=== PATIENT | female | born 1945 | race Caucasian/White ===

== ENCOUNTER 2017-01-04 16:09 | Emergency (ER) | payer OTHER ==
[2017-01-04 16:23] VITALS: RESP 18
[2017-01-04] MEDS ORDERED: ONDANSETRON 4 MG/2 ML VIAL IVP ONE (16:34)
[2017-01-04] MEDS ORDERED: NS 1,000 ML IV ONE (16:34)
--- NOTE | 2017-01-04 16:38 | EDPHY ---
H & P Stated Complaint: midnight N/V/D last vomited @ 1120 today Time Seen by Provider: 01/04/17 16:20 HPI/ROS: This patient complains of lower abdominal pain that awakened her around midnight , described as achy in nature at times severe - 8/10 peak intensity, currently 3 /10 in intensity & nonradiating with no clear exacerbating or alleviating factors. She reports associated fevers with a high temperature of 102 at home. She has also had some chills. She reports having anorexia associated with this and ongoing nausea after vomiting a few times over night. She tolerated minimal p.o. water today but still feels nauseous. She also reports onset of diarrhea overnight with few episodes of loose watery stools. She reports that the pain preceded the vomiting & diarrhea by 1-2 hours. ROS: Constitutional symptoms: Fever as per HPI otherwise negative HEENT: No recent URI symptoms. No other complaints. Pulmonary: No cough. No shortness of breath. Cardiovascular: No lightheadedness. No chest pain. GI: She reports no upper belly pain. No hematemesis, dark tarry stools or bloody stools. : No urinary symptoms. Integumentary: No skin rash Endocrine: No complaints Neuro: No complaints Complete review of symptoms is otherwise negative. Source: Patient Exam Limitations: No limitations - Personal History Current Tetanus Diphtheria and Acellular Pertussis (TDAP): Yes Tetanus Vaccine Date: 2010 - Medical/Surgical History PMH: Past surgical history: Appendicitis, hysterectomy Hypertension Diverticulosis noted on endoscopy. Hx Asthma: No Hx Chronic Respiratory Disease: No Hx Diabetes: No Hx Cardiac Disease: Yes Hx Renal Disease: No Hx Cirrhosis: No Hx Alcoholism: No Hx HIV/AIDS: No Hx Splenectomy or Spleen Trauma: No Other PMH: medical- diverticulitis, gastritis, HTN, HLD. surgical- appy, hysterectomy, x2 - Family History Significant Family History: No pertinent family hx - Social History Alcohol Use: Occasionally Drug Use: None - Physical Exam Exam: General Appearance: Alert, no distress. Eyes: Pupils equal and round no pallor or injection. ENT, Mouth: Mucous membranes moist. Respiratory: There are no retractions, lungs are clear to auscultation. Cardiovascular: Regular rate and rhythm. Gastrointestinal: Normal to hyperactive bowel sounds. Soft, mild right lower quadrant tenderness with no guarding or rebound. No organomegaly. Back: No CVA tenderness Neurological: GCS 15 with no deficits Skin: Warm and dry, no rashes. Musculoskeletal: Neck is supple nontender. Extremities are symmetrical, full range of motion. Psychiatric: Mood and affect normal DIFFERENTIAL DIAGNOSIS: After history and physical exam differential diagnosis was considered for diverticulitis, viral gastroenteritis, mild dehydration, UTI , bowel obstruction Constitutional: Initial Vital Signs Temperature (C) 37.1 C 01/04/17 16:21 Heart Rate 84 01/04/17 16:21 Respiratory Rate 18 01/04/17 16:21 Blood Pressure 151/69 H 01/04/17 16:21 O2 Sat (%) 95 01/04/17 16:21 O2 Delivery Mode Room Air Allergies/Adverse Reactions: Penicillins Allergy (Verified 08/18/13 09:02) Home Medications: Medication Instructions Recorded Aspirin 81mg (OTC) 08/18/13 Lisinopril 08/18/13 Ondansetron Odt [Zofran Odt] 4 mg PO Q4PRN PRN #6 tab 08/18/13 Simvastatin 08/18/13 Ondansetron Odt [Zofran Odt] 4 - 8 mg PO Q4PRN PRN #4 tab 01/04/17 Medical Decision Making - Diagnostics EKG Interpretation: 12 lead EKG indication colitis-possible ischemic colitis-rule out evidence of NM , abnormal rhythm or other Performed 18 19 Sinus rhythm at 78 Intervals: Normal throughout [place]: Normal throughout ST segments: Slight anterolateral ST depression in leads V3 through V6 Overall assessment sinus rhythm with nonspecific T abnormalities diffuse leads Imaging Results: Imaging Impressions Abdomen CT 01/04/17 17:19 Impression: 1. Mild colitis centered at the splenic flexure. Suspect infectious etiologies. Unlikely diverticulitis as there are no associated diverticula in the inflamed segment. Doubtful for ischemic, due to widely patent arterial and venous system. Crohn disease remains in the differential, although, atypical. Recommend colonoscopy after acute phase has resolved to exclude underlying malignancy. 2. Minimal sigmoid diverticulosis. 3. No abscess, perforation, or bowel obstruction. Findings discussed with Emergency Department physician, Cameron Culver on at 1808 hours. ED Course/Re-evaluation: IV normal saline bolus, Zofran IV with significant improvement and her symptoms. She reports resolution of nausea. She still some crampy lower abdominal pain but declined any analgesics Given the patient's fever, history of diverticulosis and multiple previous surgeries, leukocytosis to the 13.5 with left shift along with pain that preceded the onset of vomiting diarrhea by 2 hours, proceeded with CT imaging to rule out diverticulitis, early bowel obstruction or other. I counseled patient regarding the CT scan results which reveal findings consistent with a colitis. I discussed case with Dr. Wells on-call for Gastroenterology who will be happy to follow up with the patient for further evaluation for any ongoing symptoms last beyond the next 3-[address] Evans-infectious disease specialist on-call who agrees with plan for GI pathogen PCR study. Patient is unable to provide a stool sample while here so we sent her home with a stool collection kit which she use to bring a stool sample to [facility] for PCR lab testing. Discussion: This patient has colitis that clinically is most consistent with infectious colitis-likely viral given lack of risk factors for bacterial or parasitic dysentery. CT imaging not reveal any significant vascular abnormalities the be suggestive of ischemic colitis. Furthermore, the patient does not have any bloody stools, has minimal discomfort 3/10 currently and has no evidence of significant heart disease. While on her EKG she has very subtle ST depression laterally, she does not have any active cardiac symptoms and her troponin is normal. I did discuss the option of admission for this patient for further hydration and workup but she prefers to go home at this time with close follow-up with her primary care physician and Gastroenterology. - Data Points Laboratory Results: Laboratory Results 01/04/17 16:34 01/04/17 16:34 01/04/17 01/04/17 01/04/17 17:50 16:34 16:34 WBC RBC Hgb Hct MCV MCH MCHC RDW Plt Count MPV Neut % (Auto) Lymph % (Auto) [place] % (Auto) Eos % (Auto) Baso % (Auto) Nucleat RBC Rel Count Absolute Neuts (auto) Absolute Lymphs (auto) Absolute Monos (auto) Absolute Eos (auto) Absolute Basos (auto) Absolute Nucleated RBC Immature Gran % Immature Gran # Sodium 138 mEq/L mEq/L (134-144) Potassium 3.7 mEq/L mEq/L (3.5-5.2) Chloride 102 mEq/L mEq/L (97-110) Carbon Dioxide 24 mEq/l mEq/l (22-31) Anion Gap 12 mEq/L mEq/L (8-16) BUN 15 mg/dL mg/dL (7-23) Creatinine 0.7 mg/dL mg/dL (0.6-1.0) Estimated GFR > 60 Glucose 116 mg/dL H mg/dL (70-100) Calcium 9.0 mg/dL mg/dL (8.5-10.4) Troponin I < 0.012 ng/mL ng/mL (0-0.034) Urine Color YELLOW Urine Appearance CLEAR Urine pH 6.0 (5.0-7.5) Ur Specific [place] <= 1.005 (1.002-1.030) Urine Protein NEGATIVE (NEGATIVE) Urine Ketones NEGATIVE (NEGATIVE) Urine Blood TRACE H (NEGATIVE) Urine Nitrate NEGATIVE (NEGATIVE) Urine Bilirubin NEGATIVE (NEGATIVE) Urine Urobilinogen 0.2 EU EU (0.2-1.0) Ur Leukocyte Esterase NEGATIVE (NEGATIVE) Urine RBC 1-3 /hpf /hpf (0-3) Urine WBC NONE SEEN /hpf /hpf (0-3) Ur Epithelial Cells TRACE /lpf /lpf (NONE-1+) Urine Mucus 1+ /lpf /lpf (NONE-1+) Urine Glucose NEGATIVE (NEGATIVE) 01/04/17 16:34 WBC 13.57 10^3/uL H 10^3/uL (3.80-9.50) RBC 4.55 10^6/uL 10^6/uL (4.18-5.33) Hgb 13.4 g/dL g/dL (12.6-16.3) Hct 39.2 % % (38.0-47.0) MCV 86.2 fL fL (81.5-99.8) MCH 29.5 pg pg (27.9-34.1) MCHC 34.2 g/dL g/dL (32.4-36.7) RDW 12.8 % % (11.5-15.2) Plt Count 273 10^3/uL 10^3/uL (150-400) MPV 9.6 fL fL (8.7-11.7) Neut % (Auto) 85.4 % H % (39.3-74.2) Lymph % (Auto) 8.2 % L % (15.0-45.0) [place] % (Auto) 5.4 % % (4.5-13.0) Eos % (Auto) 0.1 % L % (0.6-7.6) Baso % (Auto) 0.3 % % (0.3-1.7) Nucleat RBC Rel Count 0.0 % % (0.0-0.2) Absolute Neuts (auto) 11.59 10^3/uL H 10^3/uL (1.70-6.50) Absolute Lymphs (auto) 1.11 10^3/uL 10^3/uL (1.00-3.00) Absolute Monos (auto) 0.73 10^3/uL 10^3/uL (0.30-0.80) Absolute Eos (auto) 0.02 10^3/uL L 10^3/uL (0.03-0.40) Absolute Basos (auto) 0.04 10^3/uL 10^3/uL (0.02-0.10) Absolute Nucleated RBC 0.00 10^3/uL 10^3/uL (0-0.01) Immature Gran % 0.6 % % (0.0-1.1) Immature Gran # 0.08 10^3/uL 10^3/uL (0.00-0.10) Sodium Potassium Chloride Carbon Dioxide Anion Gap BUN Creatinine Estimated GFR Glucose Calcium Troponin I Urine Color Urine Appearance Urine pH Ur Specific [place] Urine Protein Urine Ketones Urine Blood Urine Nitrate Urine Bilirubin Urine Urobilinogen Ur Leukocyte Esterase Urine RBC Urine WBC Ur Epithelial Cells Urine Mucus Urine Glucose Medications Given: Discontinued Medications Sodium Chloride (Ns) 1,000 mls @ 0 mls/hr IV ONCE ONE PRN Reason: Wide Open Stop: 01/04/17 16:35 Last Admin: 01/04/17 16:43 Dose: 1,000 mls Ondansetron HCl (Zofran) 4 mg IVP EDNOW ONE Stop: 01/04/17 16:35 Last Admin: 01/04/17 16:43 Dose: 4 mg Ondansetron HCl (Zofran Odt 4 Mg Prepack#2) 1 btl TAKEHOME EDNOW ONE Stop: 01/04/17 19:20 Last Admin: 01/04/17 19:33 Dose: 1 btl Departure - Departure Disposition: Home, Routine, Self-Care Clinical Impression: Colitis Condition: Good Instructions: Ondansetron (By mouth), Infectious Colitis (ED) Additional Instructions: Diagnosis: Colitis-presumed to be infectious Plan: Zofran for nausea or vomiting if needed Tylenol for fevers if needed Light diet to feel improved Collect a stool sample and bring it to the [facility] lab for testing. If the lab testing the stools unrevealing, then call Dr. Mcginnis,- guitar maker arrange follow-up appointment for further evaluation Referrals: Kwasi Mazariegos MD [Primary Care Provider] - As per Instructions Kade Mcginnis MD [Medical Doctor] - As per Instructions Prescriptions: Ondansetron Odt [Zofran Odt] 4 - 8 mg PO Q4PRN PRN #4 tab PRN Reason: Vomiting
[2017-01-04 16:44] LABS: % IMMATURE GRANULYOCYTES 0.6 % (0.0-1.1); ABSOLUTE IMMATURE GRANULOCYTES 0.08 10^3/uL (0.00-0.10); ADD DIFF? NO; ADD MORPH? NO; ADD SCAN? NO; ATYPICAL LYMPHOCYTE FLAG 0 (0-99); FRAGMENT RBC FLAG 0 (0-99); HEMATOCRIT 39.2 % (38.0-47.0); HEMOGLOBIN 13.4 g/dL (12.6-16.3); LEFT SHIFT FLG 0 (0-99); LIPEMIA HEMOLYSIS FLAG 90 (0-99); MEAN CELL HEMOGLOBIN 29.5 pg (27.9-34.1); MEAN CELL HEMOGLOBIN CONCENTR. 34.2 g/dL (32.4-36.7); MEAN CELL VOLUME 86.2 fL (81.5-99.8); MEAN PLATELET VOLUME 9.6 fL (8.7-11.7); PLATELET CLUMPS FLAG 0 (0-99); PLATELET COUNT 273 10^3/uL (150-400); RED BLOOD CELL COUNT 4.55 10^6/uL (4.18-5.33); RED CELL DISTRIBUTION WIDTH 12.8 % (11.5-15.2)
[2017-01-04 16:57] LABS: ANION GAP 12 mEq/L (8-16); CARBON DIOXIDE 24 mEq/l (22-31); CHLORIDE 102 mEq/L (97-110); CREATININE 0.7 mg/dL (0.6-1.0); GLOMERULAR FILTRATION RATE > 60; GLUCOSE 116 mg/dL (70-100); POTASSIUM 3.7 mEq/L (3.5-5.2); SODIUM 138 mEq/L (134-144)
[2017-01-04] MEDS ORDERED: IOPAMIDOL (ISOVUE-300) 100 ML BTL ONE (17:27)
[2017-01-04 17:57] LABS: COLOR YELLOW; LEUKOCYTE ESTERASE,URINE NEGATIVE (NEGATIVE); NITRITE,URINE NEGATIVE (NEGATIVE)
[2017-01-04 18:12] LABS: MUCUS 1+ /lpf (NONE-1+); WBC,URINE NONE SEEN /hpf (0-3)
[2017-01-04 18:20] VITALS: BP 150/73; O2SAT 96
--- NOTE | 2017-01-04 18:21 | CPEKG ---
Heart Rate: 78 RR Interval: 769 P-R Interval: 164 QRSD Interval: 76 QT Interval: 368 QTC Interval: 420 P [place]: 44 QRS [place]: 31 T Wave [place]: -43 EKG Severity - ABNORMAL ECG - EKG Impression: SINUS RHYTHM EKG Impression: NONSPECIFIC T ABNORMALITIES, DIFFUSE LEADS Electronically Signed By: Cameron Culver 04-Jan-2017 21:26:22
[2017-01-04 18:58] VITALS: PULSE 74; TEMP 98
[2017-01-04] MEDS ORDERED: ONDANSETRON 4MG PREPACK#2 BTL TAKEHOME ONE (19:19)
== END 2017-01-04 19:50 | disposition home or self-care (01) ==
LOC: CED 16:09
DX: K52.9 Noninfective gastroenteritis and colitis, unspecified (principal); I10 Essential (primary) hypertension; Z79.82 Long term (current) use of aspirin; Z90.710 Acquired absence of both cervix and uterus
CPT/HCPCS: 74177; 93005; 96361; 96374; 99285; J2405; Q9967; 80048-PO; 81003-PO; 81015-PO; 84484-PO; 85025-PO

== ENCOUNTER 2017-09-18 10:55 | Inpatient (IN) | payer OTHER ==
[2017-09-18] MEDS ORDERED: NS 1,000 ML IV ONE (11:33)
[2017-09-18] MEDS ORDERED: ONDANSETRON 4 MG/2 ML VIAL IVP ONE (11:33)
[2017-09-18 11:38] LABS: PLATELET COUNT 302 10^3/uL (150-400)
--- NOTE | 2017-09-18 11:46 | EDPHY ---
H & P Time Seen by Provider: 09/18/17 11:18 HPI/ROS: CHIEF COMPLAINT: Abdominal pain, dry heaves HISTORY OF PRESENT ILLNESS: 71-year-old female with a history of uterine cancer and prior small-bowel obstruction presents with abdominal pain. Onset of upper abdominal pain and abdominal bloating 2 days ago, waxing and waning since then. The pain has been constant, varying from 4-7 on a 1-10 pain scale. Associated with dry heaves this morning and low-grade fever. 2 episodes of loose stools yesterday, no bowel movement or flatulence today. REVIEW OF SYSTEMS: Constitutional: no chills Eyes: No visual changes ENT: No sore throat Respiratory: No cough, no shortness of breath Cardiac: No chest pain Genitourinary: No hematuria, no dysuria Musculoskeletal: No myalgias Skin: No rash Neurological: No headache, no weakness Psychiatric: No depression Past Medical/Surgical History: Diverticulosis Uterine cancer, status post XRT and hysterectomy Small-bowel obstruction Hypertension Appendectomy Social History: Smoking Status: Never smoked Physical Exam: General Appearance: Alert, pleasant Eyes: Pupils equal and round, no conjunctival pallor ENT, Mouth: Mucous membranes moist Neck: Normal inspection Respiratory: Lungs are clear to auscultation Cardiovascular: Regular rate and rhythm Gastrointestinal: Abdomen is soft, diffuse tenderness, decreased bowel sounds Neurological: A&O, nonfocal, normal gait Skin: Warm and dry Extremities: Normal inspection Psychiatric: Mood and affect normal Constitutional: Initial Vital Signs Temperature (C) 36.5 C 09/18/17 11:05 Heart Rate 81 09/18/17 11:05 Respiratory Rate 16 09/18/17 11:05 Blood Pressure 133/76 H 09/18/17 11:05 O2 Sat (%) 93 09/18/17 11:05 O2 Delivery Mode Nasal Cannula O2 (L/minute) 1.5 Allergies/Adverse Reactions: Penicillins Allergy (Verified 09/18/17 11:02) Home Medications: Medication Instructions Recorded Aspirin 81mg (OTC) 08/18/13 Lisinopril 08/18/13 Simvastatin 08/18/13 Citalopram 09/18/17 Omeprazole 09/18/17 Preservision Areds Softgel 09/18/17 VITAMIN D 09/18/17 Medical Decision Making - Diagnostics Imaging Results: Imaging Impressions Abdomen CT 09/18/17 12:11 Impression: 1. Moderate partial SBO with point of transition mid ileum in the mid pelvis with associated thickening of about 10-15 cm of ileum possibly from underlying enteritis and/or adhesions. 2. Distended gallbladder Findings discussed with Estrella Knight M.D. at 13:13 hour, 09/18/2017. ED Course/Re-evaluation: This patient presents with diffuse abdominal pain and dry heaves, concerning for recurrent small bowel obstruction. IV normal saline 1 L, morphine 6 mg IV and Zofran [address] scan of the abdomen/pelvis ordered. Feels much better after IV morphine and Zofran. 1315: CT scan results discussed with the patient, c/w SBO. Continues to feel better. Abd exam remains benign. Given no active vomiting, NGT not placed. The hospitalist service was consulted for admission. Transferred to [facility] in stable condition. Differential Diagnosis: Differential diagnosis includes though it is not limited to appendicitis, cholecystitis, diverticulitis, pyelonephritis, bowel perforation, small bowel obstruction. - Data Points Laboratory Results: Laboratory Results 09/18/17 11:20 09/18/17 11:20 09/18/17 09/18/17 09/18/17 12:06 11:20 11:20 WBC 12.78 10^3/uL H 10^3/uL (3.80-9.50) RBC 5.10 10^6/uL 10^6/uL (4.18-5.33) Hgb 14.7 g/dL g/dL (12.6-16.3) Hct 43.7 % % (38.0-47.0) MCV 85.7 fL fL (81.5-99.8) MCH 28.8 pg pg (27.9-34.1) MCHC 33.6 g/dL g/dL (32.4-36.7) RDW 13.3 % % (11.5-15.2) Plt Count 302 10^3/uL 10^3/uL (150-400) MPV 9.4 fL fL (8.7-11.7) Neut % (Auto) 88.5 % H % (39.3-74.2) Lymph % (Auto) 6.5 % L % (15.0-45.0) [place] % (Auto) 3.8 % L % (4.5-13.0) Eos % (Auto) 0.5 % L % (0.6-7.6) Baso % (Auto) 0.2 % L % (0.3-1.7) Nucleat RBC Rel Count 0.0 % % (0.0-0.2) Absolute Neuts (auto) 11.32 10^3/uL H 10^3/uL (1.70-6.50) Absolute Lymphs (auto) 0.83 10^3/uL L 10^3/uL (1.00-3.00) Absolute Monos (auto) 0.48 10^3/uL 10^3/uL (0.30-0.80) Absolute Eos (auto) 0.06 10^3/uL 10^3/uL (0.03-0.40) Absolute Basos (auto) 0.03 10^3/uL 10^3/uL (0.02-0.10) Absolute Nucleated RBC 0.00 10^3/uL 10^3/uL (0-0.01) Immature Gran % 0.5 % % (0.0-1.1) Immature Gran # 0.06 10^3/uL 10^3/uL (0.00-0.10) Sodium 140 mEq/L mEq/L (135-145) Potassium 3.8 mEq/L mEq/L (3.5-5.2) Chloride 102 mEq/L mEq/L (97-110) Carbon Dioxide 22 mEq/l mEq/l (22-31) Anion Gap 16 mEq/L mEq/L (8-16) BUN 12 mg/dL mg/dL (7-23) Creatinine 0.7 mg/dL mg/dL (0.6-1.0) Estimated GFR > 60 Glucose 159 mg/dL H mg/dL (70-100) Calcium 9.7 mg/dL mg/dL (8.5-10.4) Total Bilirubin 2.1 mg/dL H mg/dL (0.1-1.4) Conjugated Bilirubin 0.2 mg/dL mg/dL (0.0-0.5) Unconjugated Bilirubin 1.9 mg/dL H mg/dL (0.0-1.1) AST 18 IU/L IU/L (14-46) ALT 19 IU/L IU/L (9-52) Alkaline Phosphatase 91 IU/L IU/L (38-126) Total Protein 7.0 g/dL g/dL (6.3-8.2) Albumin 4.0 g/dL g/dL (3.5-5.0) Lipase 69 IU/L IU/L (23-300) Influenza A,B Rapid NEGATIVE FOR FLU (NEGATIVE) Medications Given: Discontinued Medications Sodium Chloride (Ns) 1,000 mls @ 0 mls/hr IV EDNOW ONE; Wide Open PRN Reason: Protocol Stop: 09/18/17 11:34 Last Admin: 09/18/17 11:42 Dose: 1,000 mls Morphine Sulfate (Morphine) 6 mg IVP EDNOW ONE Stop: 09/18/17 11:43 Last Admin: 09/18/17 11:53 Dose: 6 mg Ondansetron HCl (Zofran) 4 mg IVP EDNOW ONE Stop: 09/18/17 11:34 Last Admin: 09/18/17 11:46 Dose: 4 mg Departure - Departure Disposition: [facility] Inpatient Acute Clinical Impression: Small bowel obstruction Condition: Good
[2017-09-18] MEDS ORDERED: IOPAMIDOL (ISOVUE-300) 100 ML BTL ONE (12:16)
[2017-09-18] MEDS ORDERED: ACETAMINOPHEN 325 MG TAB PO PRN (14:21)
[2017-09-18] MEDS ORDERED: ONDANSETRON DISINTEGRATING 4 MG TAB PO PRN (14:21)
[2017-09-18] MEDS ORDERED: ONDANSETRON 4 MG/2 ML VIAL IVP PRN (14:21)
[2017-09-18] MEDS ORDERED: NS 1,000 ML IV SCH (14:30)
--- NOTE | 2017-09-18 17:09 | GHP ---
[f rep st] HISTORY AND PHYSICAL DATE OF ADMISSION: 09/18/2017 CHIEF COMPLAINT: Abdominal pain. HISTORY OF PRESENT ILLNESS: A 71-year-old female with limited past medical history who presents with sudden onset of severe abdominal discomfort that began approximately 24 hours prior to presentation. Patient reports sharp, severe pain extending in her upper abdomen from right to left, associated wi th mild nausea, no vomiting. Patient had previous episodes similar to this many years ago where she was diagnosed with a partial small-bowel obstruction and was treated medically and had resolution. P babs recognized the symptoms and kept herself from taking p.o. for the first 20 hours of her sympto ms, then attempted to take a banana, which she successfully kept down and when the pain did not impro ve with this modest elimination of oral intake, she opted to present for evaluation. In the ED, vaibhav es any active vomiting. Endorses subjective fevers. No chills. Denies shortness of breath, chest p ain. Denies diarrhea. Reports that she passed a small soft consistency stool without blood the morn ing of presentation. Denies dysuria, hematuria, lower extremity edema, or any rashes. PAST MEDICAL HISTORY: 1. Uterine cancer, status post surgical removal, radiation, and radioactive isotope treatment. 2. Hypertension. 3. Hyperlipidemia. 4. Gastritis. 5. History of diverticulitis. SOCIAL HISTORY: Negative for tobacco, alcohol. No illicit drugs or marijuana. FAMILY HISTORY: Negative for uterine cancer. Her mother did have a hysterectomy, secondary to an ab normal Pap smear; however, she could not confirm a true cancer diagnosis. ADVANCED DIRECTIVES: Patient is Full COR, Full Tube. REVIEW OF SYSTEMS: Negative with the exception of that reported in the HPI. PHYSICAL EXAMINATION: VITAL SIGNS: Blood pressure 113/61, heart rate 73, respiratory rate 16, 96% o n 2 L, 37.0. GENERAL: This is a healthy-appearing middle-aged female in no acute distress. HEENT: Notable for moist mucous membranes. Eye exam is negative for any icterus. CARDIAC: Patient is reg ular rate and rhythm. PULMONARY: Clear to auscultation bilaterally. GASTROINTESTINAL: Diminished bowel sounds. Abdomen is soft. Mild tenderness to palpation throughout. No rebound or guarding. M USCULOSKELETAL: Negative for any lower extremity edema. SKIN: Negative for any rashes. NEUROLOGIC : She is alert and oriented x3. PSYCHIATRIC: She is pleasant and cooperative on interview and exam ination. LABORATORY/IMAGING: White count 12.7, hematocrit 43.7, platelets of 302. Creatinine 0.7. CT of the abdomen, which I personally reviewed and interpreted, shows small bowel obstruction. Radio logy describes a transition point in the mid ileum. ASSESSMENT/PLAN: This is a 71-year-old female presenting with abdominal pain. 1. Acute small bowel obstruction. Patient is certainly at risk for mechanical obstruction related t o her previous radiation and surgical interventions. We will begin with medical management and keep the patient n.p.o., intravenous fluid, pain medications, and encourage ambulation. I have reviewed t he case with Dr. Amador from Surgery. He has seen the images and will follow along peripherally with out official consultation at this point. He agrees in not placing a nasogastric tube at this time ba sed on how decompressed her stomach appears on imaging. 2. Acute leukocytosis. Suspect secondary to her acute presentation. We will recheck in the morning . Patient does not have other symptoms concerning for occult infection. 3. Hypertension. We will continue her home medications. She is normotensive at the time of present ation. 4. Depression. Will continue her Celexa at home dosing. 5. Gastritis. Will continue her home proton pump inhibitor twice daily. 6. Prophylaxis with Lovenox. 7. Diet: n.p.o. with IV fluids. DISPOSITION: I expect greater than 2 midnights as the patient is presenting with acute bowel obstruc tion requiring medical management and close monitoring, as well as IV fluids. I have discussed the c ase with Dr. Amador from surgery. He will follow peripherally. /[id number]/MODL
[2017-09-18] MEDS: ATORVASTATIN CALCIUM 10 MG TAB PO SCH (20:51)
[2017-09-18] MEDS: BIMATOPROST 0.01% 2.5 ML OPHT.BTL EACHEYE SCH (20:51)
[2017-09-18] MEDS: ASPIRIN EC 81 MG TAB PO SCH (20:51)
[2017-09-18] MEDS: PANTOPRAZOLE SODIUM 40 MG TAB PO SCH (20:51)
[2017-09-19 05:13] LABS: PLATELET COUNT 202 10^3/uL (150-400)
[2017-09-19] MEDS ORDERED: SODIUM CHLORIDE IV SCH (07:00)
[2017-09-19] MEDS ORDERED: POTASSIUM CHLORIDE IV SCH (07:00)
[2017-09-19] MEDS ORDERED: [UNRECOGNIZED DRUG - OTHER] IV SCH (07:00)
[2017-09-19] MEDS ORDERED: DEXTROSE IV SCH (07:00)
[2017-09-19] MEDS: ENOXAPARIN 40 MG/0.4 ML SYR SC SCH (08:56)
[2017-09-19] MEDS: LISINOPRIL 10 MG TAB PO SCH (08:56)
[2017-09-19] MEDS: CITALOPRAM 20 MG TAB PO SCH (08:56)
[2017-09-19] MEDS: PRESERVISION AREDS2 FORMULA EYE VIT 1 EACH PO SCH (08:56)
[2017-09-19] MEDS: PANTOPRAZOLE SODIUM 40 MG TAB PO SCH ×2 (08:56→21:01)
[2017-09-19] MEDS ORDERED: Herbals/Supplements -Info Only PO SCH (09:00)
--- NOTE | 2017-09-19 09:39 | HOSPPROG ---
Hospitalist Progress Note Assessment/Plan: SBO - Suspect adhesions given multiple abdominal surgeries. Abdominal exam benign with bowel tones and flatus, no BM. Improving without NG tube. -abdominal plain film today personally reviewed and interpreted - mild distention of distal small bowel c/w ileus or persistent sbo -cont NPO, bowel rest -defer NG tube unless she develops vomiting or increased distention Hypertension - stable, cont lisinopril Depression - cont celexa Gastritis hx - cont PPI Full code Dispo - cont inpt Subjective: Pt feels a little better. No vomiting. +flatus, no BM. She is NPO. Less pain today. Objective: Vital Signs Temp Pulse Resp BP Pulse Ox 36.9 C 72 16 117/56 L 98 09/19/17 07:25 09/19/17 07:25 09/19/17 07:25 09/19/17 07:25 09/19/17 07:25 Laboratory Results 09/19/17 04:30 09/19/17 04:30 09/18/17 09/19/17 09/20/17 05:59 05:59 05:59 Intake Total 1300 Balance 1300 - Physical Exam Constitutional: no apparent distress Eyes: PERRL Ears, Nose, Mouth, Throat: moist mucous membranes Cardiovascular: regular rate and rhythym Respiratory: no respiratory distress, clear to auscultation Gastrointestinal: normoactive bowel sounds, soft, non-tender abdomen Skin: warm Musculoskeletal: full muscle strength Neurologic: AAOx3 Psychiatric: interacting appropriately ICD10 Worksheet Patient Problems: Problems Problem Status Onset Small bowel obstruction Acute
--- NOTE | 2017-09-19 09:43 | ASMTCASEMG ---
Living Arrangements What is your living Answers: With Spouse arrangement? Who do you live with? Type Of Residence What kind of residence do Answers: House you live in? Discharge Plan Comments Coordination Status Comments Notes: Pt is a 71 y/o female admitted for a small bowel obstruction. Pt will be consulted for surgery. Pt will most likely not have any d/c needs. No therapies ordered at this time. CM available for changes. Plan: Independent Date Signed: 09/19/2017 09:43 AM Electronically Signed By:SHASHANK Juarez
[2017-09-19] MEDS: POTASSIUM CHLORIDE IV SCH (17:54)
[2017-09-19] MEDS: SODIUM CHLORIDE IV SCH (17:54)
[2017-09-19] MEDS: [UNRECOGNIZED DRUG - OTHER] IV SCH (17:54)
[2017-09-19] MEDS: DEXTROSE IV SCH (17:54)
[2017-09-19] MEDS: BIMATOPROST 0.01% 2.5 ML OPHT.BTL EACHEYE SCH (21:01)
[2017-09-19] MEDS: ASPIRIN EC 81 MG TAB PO SCH (21:01)
[2017-09-19] MEDS: ATORVASTATIN CALCIUM 10 MG TAB PO SCH (21:01)
[2017-09-20] MEDS: DEXTROSE IV SCH (02:25)
[2017-09-20] MEDS: [UNRECOGNIZED DRUG - OTHER] IV SCH (02:25)
[2017-09-20] MEDS: SODIUM CHLORIDE IV SCH (02:25)
[2017-09-20] MEDS: POTASSIUM CHLORIDE IV SCH (02:25)
[2017-09-20] MEDS: PRESERVISION AREDS2 FORMULA EYE VIT 1 EACH PO SCH (08:32)
[2017-09-20] MEDS: ENOXAPARIN 40 MG/0.4 ML SYR SC SCH (08:32)
[2017-09-20] MEDS: PANTOPRAZOLE SODIUM 40 MG TAB PO SCH ×2 (08:32→19:56)
[2017-09-20] MEDS: CITALOPRAM 20 MG TAB PO SCH (08:32)
[2017-09-20] MEDS: LISINOPRIL 10 MG TAB PO SCH (08:32)
--- NOTE | 2017-09-20 17:29 | HOSPPROG ---
Hospitalist Progress Note Assessment/Plan: Assessment: 71 yo F p/w acute small bowel obstruction Plan: # SBO. Acute, suspect 2/2 adhesions given multiple abdominal surgeries - abd x-ray w/ scattered air, no worsening (personally interpreted) - improving, adv to clears then smoothie if no worsening of pain - cont pain/nausea Rx - cont PPI given underlying gastritis # Hypertension. Chronic, cont lisinopril # Depression. Chronic, cont celexa Full code Dispo. ADD 09/21, pending safe advancement of diet Subjective: ongoing abd fullness, passing flatus, less use of pain Rx Objective: Vital Signs Temp Pulse Resp BP Pulse Ox 37 C 52 L 14 83/66 L 96 09/20/17 15:52 09/20/17 15:52 09/20/17 15:52 09/20/17 15:52 09/20/17 15:52 Laboratory Results 09/19/17 04:30 09/20/17 04:37 09/19/17 09/20/17 09/21/17 05:59 05:59 05:59 Intake Total 1300 1200 1558 Balance 1300 1200 1558 - Physical Exam Constitutional: no apparent distress, appears nourished, not in pain, uncomfortable Cardiovascular: regular rate and rhythym, no murmur, rub, or gallop, No edema Respiratory: no respiratory distress, no rales or rhonchi, clear to auscultation Gastrointestinal: tenderness (mild), distension (mild), No normoactive bowel sounds (hypoactive bowel sounds), No guarding Neurologic: AAOx3, sensation intact bilaterally, No facial droop Psychiatric: interacting appropriately, not anxious, not encephalopathic, thought process linear ICD10 Worksheet Patient Problems: Problems Problem Status Onset Small bowel obstruction Acute
[2017-09-20] MEDS: ASPIRIN EC 81 MG TAB PO SCH (19:56)
[2017-09-20] MEDS: ATORVASTATIN CALCIUM 10 MG TAB PO SCH (19:56)
[2017-09-20] MEDS: BIMATOPROST 0.01% 2.5 ML OPHT.BTL EACHEYE SCH (19:57)
[2017-09-21 05:43] LABS: PLATELET COUNT 197 10^3/uL (150-400)
[2017-09-21 07:33] VITALS: RESP 16
[2017-09-21] MEDS: ENOXAPARIN 40 MG/0.4 ML SYR SC SCH (08:06)
[2017-09-21] MEDS: PRESERVISION AREDS2 FORMULA EYE VIT 1 EACH PO SCH (08:07)
[2017-09-21] MEDS: CITALOPRAM 20 MG TAB PO SCH (08:07)
[2017-09-21] MEDS: LISINOPRIL 10 MG TAB PO SCH (08:07)
[2017-09-21] MEDS: PANTOPRAZOLE SODIUM 40 MG TAB PO SCH (08:07)
[2017-09-21 15:29] VITALS: BP 167/102; PULSE 72; TEMP 98.1; O2SAT 95
--- NOTE | 2017-09-21 16:32 | PDDCSUM ---
Discharge Summary Discharge Summary: DISCHARGE SUMMARY FOLLOW-UP ITEMS: Follow-up symptoms with primary care provider DATE OF ADMISSION: 09/18/2017 DATE OF DISCHARGE: 09/21/2017 DISCHARGE DIAGNOSES: 1. Acute small bowel obstruction 2. Chronic hypertension 3. Suspected chronic abdominal pain secondary to adhesions CONSULTATIONS: None PROCEDURES / IMAGING: Abdominal CT demonstrating small bowel obstruction, x-ray demonstrating resolution CHIEF COMPLAINT: Acute abdominal pain and nausea SUBJECTIVE: Patient is feeling well at time discharge, she is moving her bowels PHYSICAL EXAM ON DISCHARGE: Systolic blood pressure is 130, heart rate 60, afebrile overnight, satting well on room air, abdomen is soft, minimally tender to palpation in the mid epigastric area but otherwise no guarding, bowel sounds present LABS ON DISCHARGE: Serum sodium 143, potassium 3.8, creatinine 0.7, white blood cell count 6100, hemoglobin 11.2 HOSPITAL COURSE BY PROBLEM: The patient presented with acute small bowel obstruction evidenced by abdominal pain, nausea vomiting, CT demonstrating a transition point and obstruction, most likely secondary to adhesions from prior abdominal surgeries. She was made NPO, kept on bowel rest, given IV fluids, given symptomatic pain medications and antiemetics. She did not require a nasogastric tube or surgical evaluation. When she began passing flatus, we advanced her diet to liquids, and she was able to advance to solid food on the date of discharge. She is moving her bowels at the time of discharge and I recommended a light diet moving forward for the next several days, advance as tolerates. I have also recommended as needed Reglan if she experiences and any nausea which may be evidence of early SBO, and may respond to supportive care with bowel rest and a promotility antiemetic. I suspect that the chronic abdominal discomfort she experiences is either from adhesions or a functional bowel component; however, I would not recommend anti-spasmodics at this point, given that she is prone to SBOs and bentyl/linzess can exacerbate constipation, slow bowel motility. Recommend ongoing supportive, symptomatic, non-pharmocologic strategies if possible. DISCHARGE MEDICATIONS: Please see official discharge medication reconciliation sheet in chart , continue home medications with the addition of Reglan 5-10 mg as needed. DISCHARGE INSTRUCTIONS: Please follow up with your primary care provider office early next week, to reassess symptom management, continue to discuss proactive plan moving forward. TIME SPENT: Greater than 30 minutes were spent on direct patient care, as well as discharge planning and preparation.
--- NOTE | 2017-09-22 17:32 | ASDISCHSUM ---
Discharge Information Plan Status:Home with No Needs Medically Cleared to Leave: Discharge Date:09/21/2017 04:20 PM CM D/C Disposition: ADT D/C Disposition:Home, Routine, Self-Care Projected Discharge Date:09/21/2017 04:20 PM Transportation at D/C: Discharge Delay Reason: Follow-Up Date:09/21/2017 04:20 PM Discharge Slot: Final Diagnosis: Placement Information Patient Contact Information Contact Name:GIORGI Relationship: Address:[address] Work Phone: City:[place] Phone: State/Zip Code:[place] [address] Email: Financial Information Financial Class: Primary Plan Desc:MEDICARE INPATIENT Primary Plan Number:[id number] Secondary Plan Desc:[employer] PPO AND EPO Secondary Plan Number:[id number] Assessment Information [facility] Initial CM Assessment Living Arrangements What is your living Answers: With Spouse arrangement? Who do you live with? Type Of Residence What kind of residence do Answers: House you live in? Discharge Plan Comments Coordination Status Comments Notes: Pt is a 71 y/o female admitted for a small bowel obstruction. Pt will be consulted for surgery. Pt will most likely not have any d/c needs. No therapies ordered at this time. CM available for changes. Plan: Independent Date Signed: 09/19/2017 09:43 AM Electronically Signed By:SHASHANK Juarez Intervention Information Intervention Type:*IM-Signed Date of Service:09/21/2017 03:57 PM Patient Type:Inpatient Staff Member:Kayy Reyes Hours: Discipline: Severity: Comment:
== END 2017-09-21 16:20 | disposition home or self-care (01) | DRG 390 ==
LOC: CED 10:55 → CEDHOLD 13:24 → F3E 14:42
PROVIDERS: ADMIT Hospitalist; ATTEND Hospitalist
DX: K56.51 Intestinal adhesions [bands], with partial obstruction (principal); I10 Essential (primary) hypertension; E78.5 Hyperlipidemia, unspecified; K29.70 Gastritis, unspecified, without bleeding; Z85.42 Personal history of malignant neoplasm of other parts of uterus; Z80.49 Family history of malignant neoplasm of other genital organs
CPT/HCPCS: 74177-PO; 80048-PO; 80076-PO; 83690-PO; 85025-PO; 87400-PO; 96374; 97161-GP; 97165-GO; G8978-GP-CI; G8979-GP-CI; G8980-GP-CI; G8987-GO-CI; G8988-GO-CI; G8989-GO-CI; J1650; J2405; Q9967

== ENCOUNTER 2018-11-22 12:27 | Emergency (ER) | payer OTHER ==
[2018-11-22] MEDS ORDERED: IBUPROFEN 600 MG TAB PO ONE (13:42)
--- NOTE | 2018-11-22 13:47 | EDPHY ---
H & P Time Seen by Provider: 11/22/18 12:59 HPI/ROS: HPI Right knee injury. 72-year-old female by private vehicle with her . This patient reports that last night she was walking her dog holding the dog on a leash with her right hand. The dog got excited suddenly pulled away and pulled her to the ground. She impacted her right lateral anterior knee. She did not hit her head. She denies any neck pain. She complains of isolated right knee swelling and pain. She has been icing it. She tells me that she is able to ambulate on it with discomfort but not significant difficulty. She denies any other injury or complaint. ROS: Constitutional: No fever, no chills. No weakness. Musculoskeletal: No back pain. No neck pain. As above. No other extremity pain. Skin: No rashes. No lacerations. She sustained an abrasion to the right knee. Neurological: No headache. No focal weakness or altered sensation. Past medical history: Diverticulitis, gastritis, hypertension, uterine cancer treated with radiation, small-bowel obstruction secondary to adhesions. Appendectomy, hysterectomy, x2. Social history: Nonsmoker. She is here with her . No alcohol. Physical Exam: General Appearance: Alert, no distress. This patient is responding to questions appropriately and in full sentences. This patient appears well- hydrated and well-nourished. Head: Normocephalic atraumatic. Face: Facial bones are stable on palpation. Eyes: Pupils equal and round and reactive to light, no pallor or injection. No lid erythema or edema. ENT, Mouth: Mucous membranes moist. Dentition is intact. No malocclusion of the jaw. No tongue lacerations or abrasions. Pharynx is clear. The bilateral nasal canals are clear. No septal hematoma. Respiratory: There are no retractions, lungs are clear to auscultation with good air movement bilaterally. Chest wall is stable to AP and lateral palpation. Cardiovascular: Regular rate and rhythm. No murmur. Gastrointestinal: Abdomen is soft and nontender, no masses, bowel sounds normal. Neurological: Motor sensory function is intact. Cranial nerves are normal. Cerebellar function intact. Skin: Warm and dry, no rashes. No lacerations. She has a superficial abrasion to the anterior lateral aspect just adjacent to the lateral patella involving the right knee. Musculoskeletal: Neck is supple and nontender. The trachea is midline. No midline cervical, thoracic, lumbar or sacral tenderness on palpation. No flank tenderness on palpation. Right lower extremity exam: Significant for a moderate effusion involving the right knee. Abrasion noted involving the right knee as above. She does have some tenderness on palpation posterior lateral aspect of the knee. No bony deformity or step-off noted over this area. No ecchymosis. She has got mild tenderness on palpation over the patella. No bony step-off or deformity noted on palpation. No significant tenderness on palpation of the medial lateral joint lines. The knee joint is stable to anterior and posterior drawer testing as well as valgus and varus stress testing. The right lower extremity is neurovascularly intact. Extremities are symmetrical, full range of motion except noted. All joints in the bilateral upper and bilateral lower extremities range without pain or impingement except noted. No tenderness on palpation of the long bones in the bilateral upper and bilateral lower extremities except noted. Psychiatric: No agitation. No depression. Database: EKG: Imaging: Right knee x-ray series: Negative for fracture, subluxation, dislocation. Age- related changes. Effusion noted. Interpreted by me. Procedures: Emergency department course: Triage vital signs reviewed. She is moderately hypertensive. Vital signs are otherwise normal. She will be given 600 mg of ibuprofen for pain. She currently has an ice bag over the right anterior knee. X-rays to be obtained. 2:10 p.m., the patient was re-evaluated, resting comfortably at this time. Results of x-rays discussed with her and her . She will be fitted with a right knee brace. She can ambulate on the right knee without significant pain. I explained my concern about a possible meniscal versus ligamentous injury. Plan will be to have her follow up with her primary care physician in 2 -3 days for re-evaluation and an outpatient MRI of the right knee. I will also provide her with orthopedic referral for further evaluation and management. This plan was discussed with her and her . All of her questions were answered. Return to emergency department precautions thoroughly reviewed. The patient was discharged home in good condition with her . Differential Diagnosis: The differential diagnosis on this patient includes but is not limited to right knee contusion with effusion, right knee ligamentous injury. Rib fracture, subluxation, dislocation involving the right knee unlikely. This represents a partial list of diagnoses considered. These considerations are based on history , physical exam, past history, reassessment and diagnostic testing. Smoking Status: Never smoked Constitutional: Initial Vital Signs Temperature (C) 36.6 C 11/22/18 12:34 Heart Rate 78 11/22/18 12:34 Respiratory Rate 18 11/22/18 12:34 Blood Pressure 165/94 H 11/22/18 12:34 O2 Sat (%) 94 11/22/18 12:34 O2 Delivery Mode Room Air Allergies/Adverse Reactions: Penicillins Allergy (Verified 11/22/18 12:33) Home Medications: Medication Instructions Recorded Aspirin EC [Aspirin EC 81 mg (*)] 81 mg PO HS 08/18/13 Lisinopril [Zestril 10 mg (*)] 10 mg PO DAILY 08/18/13 Simvastatin 20 mg PO HS 08/18/13 Bimatoprost 0.01% [Lumigan 0.01% 1 drops EACHEYE HS 09/18/17 (*)] C/E/Zn/Cu/OM3/DHA/EPA/LUT/ZEAX 1 each PO DAILY 09/18/17 [Preservision Areds 2 Softgel] Citalopram [CeleXA 20 MG] 20 mg PO DAILY 09/18/17 Herbals/Supplements -Info Only 1 ea PO DAILY 09/18/17 Omeprazole 20 mg PO BID 09/18/17 Metoclopramide [Reglan 5 mg (*)] 5 - 10 mg PO Q6 PRN #20 tab 09/21/17 Medical Decision Making - Data Points Medications Given: Discontinued Medications Ibuprofen (Motrin) 600 mg PO EDNOW ONE Stop: 11/22/18 13:43 Last Admin: 11/22/18 13:48 Dose: 600 mg Departure - Departure Disposition: Home, Routine, Self-Care Clinical Impression: Right knee injury Condition: Good Instructions: Knee Immobilizer (ED), Knee Pain (ED), R.I.C.E. Treatment (ED) Additional Instructions: Read and follow provided instructions. Follow-up with your primary care physician, Dr. Kwasi Mazariegos or 1 of his partners, in 2-3 days for re-evaluation as discussed. I am concerned about a possible ligamentous injury or injury to your meniscus. He will need your primary care physician to refer you for an outpatient MRI of your right knee. I have also provided you with a referral to 1 of our occupational therapy specialist for further evaluation. They should have access to the results of your MRI. When up and ambulating wear the brace. You can take it off at night and when bathing. Ibuprofen dosin mg every 6 hours with meals for the next 3 days only. Take only as needed for pain. Return to the emergency department for worsening pain, swelling, discoloration or other serious concerns. Referrals: Kwasi Mazariegos MD [Primary Care Provider] - As per Instructions Cameron Graff MD [Medical Doctor] - As per Instructions
[2018-11-22 14:16] VITALS: BP 158/75
== END 2018-11-22 14:24 | disposition home or self-care (01) ==
DX: M17.11 Unilateral primary osteoarthritis, right knee (principal)
CPT/HCPCS: 73564; 99283; L1830